=== PATIENT | male | born 1995 | race Asian ===

== ENCOUNTER → 2017-04-30 | Day surgery (SDC) | payer BC ==
[2017-04-23 13:27] VITALS: Ht 170.2 cm; Wt 90.9 kg
[~2017-04-30] VITALS: Ht 170.2 cm; Wt 90.9 kg
[~2017-04-30] MED LIST: CHOL4POW3 PO; DICY10CA12 PO; DICY10CA55 PO; FLUO20CA20 PO; INHALER INH; LIDOCAINE HCL 2% 2 ML VIAL (20MG/ML) ONE; PROM25TA9 PO; PROPOFOL IV EMULSION 10 MG/ML 20 ML VIAL IV ONE; SODIUM CHLORIDE 0.9% 500ML 500 ML IV ONE; VANC5CAP PO
--- NOTE | 2017-04-30 14:29 | Endo History and Physical ---
History & Physical Date of Service: Apr 30, 2017. Chief Complaint: diarrhea Referring Physician: Case History of Present Illness 21 yo male who presents for colonoscopy secondary to diarrhea. 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) Family History IBD Social History Smoking Status: Never Smoker Hx Substance Use: Yes (MARIJUANA USE OCCASIONALLY) Hx Alcohol Use: Yes (RARELY) Allergies Coded Allergies: No Known Allergies (Verified , 04/30/17) Current Medications Reported Home Medications Medications Dose Route/Sig Max Daily Dose Days Date Category Dose Instructions [Inhaler] 2 Puff INH DIRECTED PRN 04/23/17 Reported UNSURE OF NAME OF INHALER Fluoxetine (Fluoxetine Hcl (Pmdd)) 20 Mg Cap 1 Cap PO QAM 04/23/17 Reported Vital Signs Weight (Kilograms): 90.91 Height (Feet): 5 Height (Inches): 7 Date Time Temp Pulse Resp B/P (MAP) Pulse Ox O2 Delivery O2 Flow Rate FiO2 04/30/17 14:05 37.2 68 16 117/69 (85) 97 Room Air Physical Exam General Appearance: WD/WN, no apparent distress Respiratory/Chest: Auscultation: breath sounds normal Cardiovascular: Heart Auscultation: RRR Abdomen: Bowel Sounds: normal Inspection & Palpation: soft, non-distended, no tenderness, guarding & rebound Assessment and Plan Assessment: 21 yo male who presents for colonoscopy secondary to diarrhea. Plan: Proceed with colonoscopy.
--- NOTE | 2017-04-30 15:14 | Discharge Instructions ---
Endoscopy Patient Instructions Date / Procedure(s) Performed Apr 30, 2017. Colonoscopy Allergy Information Coded Allergies: No Known Allergies (Verified , 04/30/17) Discharge Date / Findings Apr 30, 2017. Prominent Ileocecal valve s/p biopsies Random colon biopsies Stool aspirate collected Provider Instructions Activity Restrictions - No exercising or heavy lifting for 24 hours. - Do not drink alcohol the day of the procedure. - Do not drive a car or operate machinery until the day after the procedure. - Do not make any important decisions or sign important papers in 24 hours after the procedure. Following Day: - Return to full activity which may include returning to work/school. Diet Start your diet with liquids and light foods (jello, soup, juice, toast). Then eat your usual diet if not nauseated. Treatment For Common After Affects For mild abdominal pain, bloating, or excessive gas: - Rest - Eat lightly - Lie on right side Follow-Up Information Follow-up with no PCP assigned as scheduled Anesthesia Information What You Should Know You have had a procedure that required some medicine to reduce anxiety and discomfort. This treatment is called moderate sedation. After receiving the treatment, you may be sleepy, but you will be able to breathe on your own. The effects of the treatment may last for several hours. Follow these instructions along with Activity/Diet recommendations noted above: * Do NOT do anything where dizziness or clumsiness would be dangerous. * Rest quietly at home today, then you can be up and about tomorrow. * Have a responsible person stay with you the rest of today. * You may have had an I.V. today. If so, you may take the dressing off later today. Recommendations Call your doctor if: * Trouble breathing * Continuous vomiting for more than 24 hours * Temperature above 101 degrees * Severe abdominal pain or bloating * Pain not relieved by pain medicine ordered * There is increased drainage or redness from any incision * A large amount of rectal bleeding greater than 2-3 tablespoons. (If you had a polyp/s removed or have hemorrhoids, a small amount of blood - from the rectum is to be expected.) * You have any unanswered questions or concerns. IN THE EVENT OF A SERIOUS EMERGENCY, GO TO THE NEAREST EMERGENCY ROOM Your discharge instructions were prepared by provider Tico David. Patient Instructions Signature Page [place] Patient (or Guardian) Signature/Date: I have read and understand the instructions given to me by my caregivers. Caregiver/RN/Doctor Signature/Date: The above-named patient and/or guardian has received patient instructions on this date. + Original Patient Signature Page (only) stays with chart. Please make copy for patient.
--- NOTE | 2017-04-30 15:20 | GI REPORT ---
Procedure Date: 04/30/2017 2:37 PM Procedure: Colonoscopy Indications: Chronic diarrhea Medicines: Monitored Anesthesia Care Complications: No immediate complications. Estimated Blood Loss: Estimated blood loss: none. Procedure: Pre-Anesthesia Assessment: - Prior to the procedure, a History and Physical was performed, and patient medications and allergies were reviewed. The patient's tolerance of previous anesthesia was also reviewed. The risks and benefits of the procedure and the sedation options and risks were discussed with the patient. All questions were answered, and informed consent was obtained. Prior Anticoagulants: The patient has taken no previous anticoagulant or antiplatelet agents. ASA Grade Assessment: II - A patient with mild systemic disease. After reviewing the risks and benefits, the patient was deemed in satisfactory condition to undergo the procedure. After I obtained informed consent, the scope was passed under direct vision. Throughout the procedure, the patient's blood pressure, pulse, and oxygen saturations were monitored continuously. The Scope was introduced through the anus and advanced to the terminal ileum. The colonoscopy was performed without difficulty. The patient tolerated the procedure well. The quality of the bowel preparation was good. The terminal ileum, ileocecal valve, appendiceal orifice, and rectum were photographed. Findings: The perianal and digital rectal examinations were normal. Two biopsies were obtained with cold forceps for histology in a targeted manner at the ileocecal valve. Several random biopsies were obtained with cold forceps for histology in the entire colon. Fluid aspiration for cytology was performed in the entire colon. Impression: - Two biopsies were obtained at the ileocecal valve. - Several random biopsies were obtained in the entire colon. - Fluid aspiration was performed. Recommendation: - Resume previous diet. - Continue present medications. - Repeat colonoscopy for surveillance based on pathology results. - Return to primary care physician as previously scheduled. Tico David DO 04/30/2017 3:20:11 PM This report has been signed electronically. Note Initiated On: 04/30/2017 2:37 PM I attest to the content of the Intraoperative Record and orders documented therein, exceptions below
--- NOTE | 2017-04-30 15:38 | Anesthesiology Progress Note ---
Anesthesia Post Op Note Date & Time Apr 30, 2017 at 15:38 Vital Signs Pain Intensity: 0 Vital Signs Past 12 Hours Date Time Temp Pulse Resp B/P (MAP) Pulse Ox O2 Delivery O2 Flow Rate FiO2 04/30/17 15:27 60 16 137/79 (98) 97 Room Air 04/30/17 15:12 71 16 115/62 (79) 98 Room Air 04/30/17 14:05 37.2 68 16 117/69 (85) 97 Room Air Notes Mental Status: alert / awake / arousable, participated in evaluation Pt Amnestic to Procedure: Yes Nausea / Vomiting: adequately controlled Pain: adequately controlled Airway Patency, RR, SpO2: stable & adequate BP & HR: stable & adequate Hydration State: stable & adequate Anesthetic Complications: no major complications apparent
[2017-04-30 15:42] VITALS: BP 119/84; PULSE 67; O2SAT 97
== END | disposition home or self-care (01) ==
LOC: C.GI 13:34
PROVIDERS: ATTEND Internal Medicine
DX: K52.9 Noninfective gastroenteritis and colitis, unspecified (principal); J45.909 Unspecified asthma, uncomplicated; Z98.890 Other specified postprocedural states; F12.90 Cannabis use, unspecified, uncomplicated; K21.9 Gastro-esophageal reflux disease without esophagitis; E66.9 Obesity, unspecified; Z68.31 Body mass index [BMI] 31.0-31.9, adult

== ENCOUNTER 2017-07-27 09:54 | Emergency (ER) | payer BC, OTHER ==
[~2017-07-27] VITALS: Ht 170.2 cm; Wt 91.1 kg
[~2017-07-27 09:54] MED LIST changes: -CHOL4POW3 PO; -DICY10CA12 PO; -DICY10CA55 PO; -LIDOCAINE HCL 2% 2 ML VIAL (20MG/ML) ONE; -PROM25TA9 PO; -PROPOFOL IV EMULSION 10 MG/ML 20 ML VIAL IV ONE; -SODIUM CHLORIDE 0.9% 500ML 500 ML IV ONE; -VANC5CAP PO
[2017-07-27 10:04] VITALS: TEMP 36.7; Ht 170.2 cm; Wt 91.1 kg
[2017-07-27] MEDS ORDERED: ONDANSETRON INJ 2 MG/ML 2 ML VIAL IV STA (10:15)
[2017-07-27] MEDS ORDERED: SODIUM CHLORIDE 0.9% 1000ML 1,000 ML IV STA (10:15)
[2017-07-27] MEDS ORDERED: KETOROLAC TROMETHAMINE 30 MG/ML VIAL IV STA (10:15)
[2017-07-27 10:52] LABS: BASO % 1.2 %; BASO ABS # 0.08 K/uL (0-0.2); EOS % 1.8 %; EOS ABS # 0.12 K/uL (0-0.5); HEMATOCRIT 45.2 % (42-52); HEMOGLOBIN 15.5 g/dL (14.0-18.0); IG# 0.01 K/uL (0.00-0.02); LYMPH % 30.3 %; LYMPH ABS # 2.01 K/uL (1.2-3.4); MEAN CELL VOLUME 91.9 fL (80-100); MEAN CORPUSCULAR HEMOGLOBIN 31.5 pg (25-34); MEAN CORPUSCULAR HGB CONC 34.3 g/dl (32-36); MONO % 9.6 %; MONO ABS # 0.64 K/uL (0.11-0.59); NEUT % 56.9 %; NEUT ABS # 3.78 K/uL (1.4-6.5); PLATELET COUNT 266 K/uL (130-400); RED CELL DISTRIBUTION WIDTH CV 11.8 % (11.5-14.5); RED CELL DISTRIBUTION WIDTH SD 40.1 fL (36.4-46.3); WHITE BLOOD COUNT 6.64 K/uL (4.8-10.8)
[2017-07-27 11:03] LABS: INR 1.1 (0.9-1.1); PTT PATIENT 29.7 SECONDS (21.0-31.0)
--- NOTE | 2017-07-27 11:03 | DIAGNOSTIC IMAGING REPORT ---
CHEST ONE VIEW PORTABLE CLINICAL HISTORY: 21 years-old Male presenting with ABDOMINAL PAIN/GI, chest pain, vomiting and nausea. TECHNIQUE: Portable upright AP view of the chest was obtained. COMPARISON: None. FINDINGS: Cardiomediastinal silhouette normal. Lungs and pleural spaces clear. Osseous structures normal. Upper abdomen normal. IMPRESSION: 1. No acute cardiopulmonary disease. Electronically signed by: Jorge Luis Lopez M.D. 07/27/2017 11:01 AM Dictated Date/Time: 07/27/2017 11:01 AM
[2017-07-27 11:17] LABS: ALBUMIN 4.1 gm/dl (3.4-5.0); CREATININE 0.89 mg/dl (0.60-1.40); POTASSIUM 4.1 mmol/L (3.5-5.1)
--- NOTE | 2017-07-27 12:22 | EMERGENCY ROOM VISIT NOTE ---
History Report prepared by Scribbreezy: Lester Jordan Under the Supervision of: Dr. Dada Evangelista D.O. First contact with patient: 10:14 Chief Complaint: ABDOMINAL PAIN Stated Complaint: CHEAT PAIN, VOMIT, NAUEA, DIARRHEA, CRAMPS History of Present Illness The patient is a 21 year old male who presents to the Emergency Room with complaints of intermittent diffuse abdominal pain beginning a few weeks ago. He was diagnosed with IBS four years ago, and states that it worsened one year ago. He rates his pain as a 7/10 in severity. The patient also complains of vomiting, nausea, diarrhea, and heart palpitations. He had a colonoscopy and was found to have C-Diff three months ago. He states that his pain is typically worse in the morning, and he states that he is often not able to eat until about 5pm each day. Eating worsens his symptoms. The patient reports losing about 20 pounds in the past month. Source of History: patient Onset: A few weeks ago Position: abdomen (diffuse) Symptom Intensity: 7/10 Modifying Factors (Worsening): eating, other (mornings) Associated Symptoms: + nausea, + vomiting, + diarrhea Note: Additional symptoms: heart palpitations. Review of Systems See HPI for pertinent positives & negatives. A total of 10 systems reviewed and were otherwise negative. Past Medical & Surgical Medical Problems: (1) C. difficile colitis (2) IBS (irritable bowel syndrome) Family History No pertinent family history stated. Social History Smoking Status: Never Smoker Occupation Status: employed Current/Historical Medications Scheduled Fluoxetine Hcl (Pmdd) (Fluoxetine), 20 MG PO QAM Allergies Coded Allergies: No Known Allergies (Verified , 07/27/17) Physical Exam Vital Signs Date Time Temp Pulse Resp B/P (MAP) Pulse Ox O2 Delivery O2 Flow Rate FiO2 07/27/17 11:30 69 16 122/68 98 Room Air 07/27/17 10:04 36.7 88 20 126/86 97 Room Air Physical Exam CONSTITUTIONAL/VITAL SIGNS: Reviewed / noted above. GENERAL: Non-toxic in appearance. INTEGUMENTARY: Warm, dry, and [place]. HEAD: Normocephalic. EYES: without scleral icterus or trauma. ENT/OROPHARYNX: clear and moist. LYMPHADENOPATHY/NECK: Is supple without lymphadenopathy or meningismus. RESPIRATORY: Lungs clear and equal. CARDIOVASCULAR: Regular rate and rhythm. GI/ABDOMEN: Soft. Mild diffuse abdominal tenderness. No organomegaly or pulsatile mass. No rebound or guarding. Normal bowel sounds. EXTREMITIES: Warm and well perfused. BACK: No CVA tenderness. NEUROLOGICAL: Intact without focal deficits. PSYCHIATRIC: normal affect. MUSCULOSKELETAL: Normally developed with good muscle tone. Medical Decision & Procedures ER Provider Diagnostic Interpretation: Radiology results as stated below per my review and radiologist interpretation: CHEST ONE VIEW PORTABLE FINDINGS: Cardiomediastinal silhouette normal. Lungs and pleural spaces clear. Osseous structures normal. Upper abdomen normal. IMPRESSION: 1. No acute cardiopulmonary disease. Electronically signed by: Jorge Luis Lopez M.D. 07/27/2017 11:01 AM Laboratory Results 07/27/17 10:35 Red Blood Count 4.92, Mean Corpuscular Volume 91.9, Mean Corpuscular Hemoglobin 31.5, Mean Corpuscular Hemoglobin Concent 34.3, Mean Platelet Volume 9.0, Neutrophils (%) (Auto) 56.9, Lymphocytes (%) (Auto) 30.3, Monocytes (%) (Auto) 9.6, Eosinophils (%) (Auto) 1.8, Basophils (%) (Auto) 1.2, Neutrophils # (Auto) 3.78, Lymphocytes # (Auto) 2.01, Monocytes # (Auto) 0.64, Eosinophils # (Auto) 0.12, Basophils # (Auto) 0.08 07/27/17 10:35 Test 07/27/17 10:35 White Blood Count 6.64 K/uL (4.8-10.8) Red Blood Count 4.92 M/uL (4.7-6.1) Hemoglobin 15.5 g/dL (14.0-18.0) Hematocrit 45.2 % (42-52) Mean Corpuscular Volume 91.9 fL (80-100) Mean Corpuscular Hemoglobin 31.5 pg (25-34) Mean Corpuscular Hemoglobin Concent 34.3 g/dl (32-36) Platelet Count 266 K/uL (130-400) Mean Platelet Volume 9.0 fL (7.4-10.4) Neutrophils (%) (Auto) 56.9 % Lymphocytes (%) (Auto) 30.3 % Monocytes (%) (Auto) 9.6 % Eosinophils (%) (Auto) 1.8 % Basophils (%) (Auto) 1.2 % Neutrophils # (Auto) 3.78 K/uL (1.4-6.5) Lymphocytes # (Auto) 2.01 K/uL (1.2-3.4) Monocytes # (Auto) 0.64 K/uL (0.11-0.59) Eosinophils # (Auto) 0.12 K/uL (0-0.5) Basophils # (Auto) 0.08 K/uL (0-0.2) RDW Standard Deviation 40.1 fL (36.4-46.3) RDW Coefficient of Variation 11.8 % (11.5-14.5) Immature Granulocyte % (Auto) 0.2 % Immature Granulocyte # (Auto) 0.01 K/uL (0.00-0.02) Prothrombin Time 11.2 SECONDS (9.0-12.0) Prothromb Time International Ratio 1.1 (0.9-1.1) Activated Partial Thromboplast Time 29.7 SECONDS (21.0-31.0) Partial Thromboplastin Ratio 1.1 Anion Gap 6.0 mmol/L (3-11) Est Creatinine Clear Calc Drug Dose 141.3 ml/min Estimated GFR () 141.7 Estimated GFR (Non- 122.2 BUN/Creatinine Ratio 14.6 (10-20) Calcium Level 9.0 mg/dl (8.5-10.1) Total Bilirubin 0.7 mg/dl (0.2-1) Direct Bilirubin 0.1 mg/dl (0-0.2) Aspartate Amino Transf (AST/SGOT) 14 U/L (15-37) Alanine Aminotransferase (ALT/SGPT) 27 U/L (12-78) Alkaline Phosphatase 82 U/L (45-117) Total Protein 8.0 gm/dl (6.4-8.2) Albumin 4.1 gm/dl (3.4-5.0) Lipase 85 U/L (73-393) Date/Time Source Procedure Growth Status 07/27/17 11:10 Stool C.difficile Toxin B Gene (PCR) - Final Positive for C. difficile toxin B gene Complete Laboratory results as stated above per my review. Medications Administered Medications (Trade) Dose Ordered Sig/Gale Route Start Time Stop Time Status Last Admin Dose Admin Sodium Chloride 1,000 ml @ 999 mls/hr Q1H1M STAT IV 07/27/17 10:15 07/27/17 11:15 DC 07/27/17 10:15 999 MLS/HR Ondansetron HCl (Zofran Inj) 4 mg NOW STAT IV 07/27/17 10:15 07/27/17 10:17 DC 07/27/17 10:42 4 MG ECG Per My Interpretation Indication: abdominal pain Rate (beats per minute): 70 Rhythm: normal sinus Findings: no ectopy, other (No ST elevations. No ST depressions. ) ED Course 1017: Previous medical records were reviewed. The patient was evaluated in room C5. A complete history and physical examination was performed. Ordered Toradol Inj 30 mg IV, Zofran Inj 4 mg IV, Sodium Chloride 1000 ml @ 999 mls/hr IV. 1208: On reevaluation, the patient is resting comfortably. I discussed the results and findings with the patient. He verbalized agreement of the treatment plan. The patient was discharged home. Medical Decision Differential considered: pancreatitis, hepatitis, or acute cholecystitis, AAA, UTI, pyelonephritis, kidney stones, appendicitis, diverticulitis, shingles, bowel obstruction mesenteric ischemia, intussusception,hernia, testicular torsion. This is a 21-year-old male who presents to the ED with a chief complaint of abdominal discomfort. The patient reports abdominal cramps as well as some nausea and vomiting. He was diagnosed with IBS for years ago. He had a colonoscopy in April was diagnosed with C. difficile. The patient has been on Prilosec recently without any changes in his symptoms. He saw Dr. David last week. The patient also reported some palpitations this morning. The patient came in for evaluation for this. His vital signs are normal. His physical exam was unremarkable. He had some mild diffuse tenderness. CBC is normal, complete metabolic panel was normal and lipase was negative. The patient does report diarrhea with p.o. intake. He states that he was supposed to have a repeat C. difficile test and this was positive today. The patient was treated with IV fluids, IV Zofran and IV Toradol. He remained stable. He is felt to be stable for discharge and follow-up with GI. Discharged with a 10 day course of vancomycin. Medication Reconcilliation Current Medication List: was personally reviewed by me Blood Pressure Screening Patient's blood pressure: Normal blood pressure Blood pressure disposition: Did not require urgent referral Impression Primary Impression: Abdominal pain, diffuse Scribe Attestation The scribe's documentation has been prepared under my direction and personally reviewed by me in its entirety. I confirm that the note above accurately reflects all work, treatment, procedures, and medical decision making performed by me. Departure Information Prescriptions Vancomycin Hcl (Vancomycin) 125 Mg Cap 1 TAB PO QID for 10 Days, #40 TAB Prov: Dada Evangelista D.O. 07/27/17 Referrals No Doctor, Assigned (PCP) Patient Instructions My [facility] Additional Instructions Follow-up with your GI specialist for further evaluation if her symptoms persist. Vancomycin 4 times daily as prescribed. Follow-up with your doctor for further care and evaluation in 1-2 days. Return to the emergency department for worsening or new symptoms or any concerns. You have been examined and treated today on an emergency basis only. This is not a substitute for, or an effort to provide, complete comprehensive medical care. It is impossible to recognize and treat all injuries or illnesses in a single emergency department visit. It is therefore important that you follow up closely with your doctor. Call as soon as possible for an appointment. Work Instructions Return To Work: 1 week
[2017-07-27] MEDS ORDERED: VANC5CAP PO (12:33)
[2017-07-27 12:51] VITALS: BP 116/81; PULSE 72; O2SAT 98
== END 2017-07-27 12:53 | disposition home or self-care (01) ==
LOC: C.EDB 09:55 → C.EDC 12:53
DX: R10.84 Generalized abdominal pain (principal); K58.9 Irritable bowel syndrome, unspecified; R11.2 Nausea with vomiting, unspecified; R19.7 Diarrhea, unspecified; R00.2 Palpitations; A04.72 Enterocolitis due to Clostridium difficile, not specified as recurrent; R63.4 Abnormal weight loss

== ENCOUNTER 2017-08-12 10:27 | Emergency (ER) | payer OTHER ==
[~2017-08-12] VITALS: Ht 170.2 cm; Wt 91.3 kg
[~2017-08-12 10:27] MED LIST changes: -INHALER INH; +VANC5CAP PO
[2017-08-12 10:29] VITALS: TEMP 36.8; Ht 170.2 cm; Wt 91.3 kg
[2017-08-12] MEDS ORDERED: SODIUM CHLORIDE 0.9% 1000ML 1,000 ML IV STA (11:12)
[2017-08-12] MEDS ORDERED: KETOROLAC TROMETHAMINE 30 MG/ML VIAL IV STA (11:12)
[2017-08-12] MEDS ORDERED: HYDROmorphone INJ 1 MG/ML SYR IV STA (11:12)
[2017-08-12] MEDS ORDERED: METOCLOPRAMIDE HCL INJ 5 MG/ML 2 ML VIAL IV. STA (11:12)
[2017-08-12] MEDS ORDERED: VANC5CAP PO ×2 (11:22→14:09)
[2017-08-12] MEDS ORDERED: DICY10CA12 PO (11:22)
[2017-08-12] MEDS ORDERED: PROM25TA9 PO (11:22)
[2017-08-12] MEDS ORDERED: OPTIRAY 320 IV PRN (11:30)
--- NOTE | 2017-08-12 11:38 | EMERGENCY ROOM VISIT NOTE ---
History Report prepared by Elio: Tammy Araiza Under the Supervision of: Dr. Dada Haro M.D. First contact with patient: 10:50 Chief Complaint: ABDOMINAL PAIN Stated Complaint: VERY PAINFUL STOMACH, INTESTINES Nursing Triage Summary: pt reports seen here 3 weeks ago for c diff and has been ongoing History of Present Illness The patient is a 21 year old male who presents to the Emergency Room with complaints of constant abdominal pressure beginning 5 days ago. He reports he has been waking up the past five days with 9/10 abdominal pain. The patient reports a constant urge to go to the bathroom. The patient states "my stool has been air like rice krispies and not like normal diarrhea". The patient was seen three weeks ago in the ED and was put on a six week course of vancomycin for C. Diff. The patient saw for a follow up after being seen in the ED. Dr. Morillo was given antinausea medications as a well as a a stomach relaxer. The patient denies taking any Tylenol or ibuprofen for his pain. He notes increased gas. The patient reports he has been calling Dr. Morillo's office for the past several days and has been unable to get a hold of anyone. The patient reports he has lost 20 pounds since April. He denies losing any more weight since he was seen in the ED 3 weeks ago. The patient has a history of C.diff and IBS. Source of History: patient Onset: 5 days ago Position: abdomen Quality: pressure Timing: constant Associated Symptoms: + nausea, + abdominal pain, + diarrhea Review of Systems See HPI for pertinent positives & negatives. A total of 10 systems reviewed and were otherwise negative. Past Medical & Surgical Medical Problems: (1) C. difficile colitis (2) IBS (irritable bowel syndrome) Family History Cancer FH: hypertension Heart disease Social History Smoking Status: Never Smoker Alcohol Use: occasionally Drug Use: marijuana Housing Status: lives with family Occupation Status: employed Current/Historical Medications Scheduled Cholestyramine (Cholestyramine), 4 GM PO BID Dicyclomine Hcl (Dicyclomine Hcl), 10 CAP PO TID Dicyclomine Hcl (Bentyl), 20 MG PO TID Fluoxetine Hcl (Pmdd) (Fluoxetine), 20 MG PO QAM Vancomycin Hcl (Vancomycin), 125 MG PO BID Vancomycin Hcl (Vancomycin), 1 CAP PO DAILY Scheduled PRN Promethazine Hcl (Phenergan), 25 MG PO Q6H PRN for Nausea Allergies Coded Allergies: No Known Allergies (Verified , 08/12/17) Physical Exam Vital Signs Date Time Temp Pulse Resp B/P (MAP) Pulse Ox O2 Delivery O2 Flow Rate FiO2 08/12/17 14:28 70 18 126/77 98 08/12/17 13:34 67 16 136/81 99 Room Air 08/12/17 12:06 65 16 133/80 99 Room Air 08/12/17 10:29 36.8 88 18 133/90 98 Room Air Physical Exam GENERAL: Awake, alert, well-appearing, in no acute distress HENT: Normocephalic, atraumatic. Oropharynx unremarkable. EYES: Normal conjunctiva. Sclera non-icteric. NECK: Supple. No nuchal rigidity. FROM. No JVD. RESPIRATORY: Clear to auscultation. CARDIAC: Regular rate, normal rhythm. Extremities warm and well perfused. Pulses equal. ABDOMEN: Soft, non-distended. No tenderness to palpation. No rebound or guarding. No masses. RECTAL: Deferred. MUSCULOSKELETAL: Chest examination reveals no tenderness. The back is symmetrical on inspection without obvious abnormality. There is no CVA tenderness to palpation. No joint edema. LOWER EXTREMITIES: Calves are equal size bilaterally and non-tender. No edema. No discoloration. NEURO: Normal sensorium. No sensory or motor deficits noted. SKIN: No rash or jaundice noted. Medical Decision & Procedures ER Provider Diagnostic Interpretation: Radiology results as stated below per my review and radiologist interpretation: CT OF THE ABDOMEN AND PELVIS WITH CONTRAST FINDINGS: The liver, spleen, adrenal glands, kidneys and pancreas are normal. There is no hydronephrosis. There is no peripancreatic or pericholecystic infiltration. No biliary or pancreatic ductal dilatation is present. No pneumatosis, free air or portal venous gas is present. The appendix is normal. No ascites or lymphadenopathy is noted. There is no hydronephrosis. Visualized skeletal structures are unremarkable. IMPRESSION: No acute process within the abdomen or pelvis. Normal appendix. Electronically signed by: Ajit Medina M.D. Laboratory Results 08/12/17 11:30 Red Blood Count 4.73, Mean Corpuscular Volume 92.2, Mean Corpuscular Hemoglobin 31.5, Mean Corpuscular Hemoglobin Concent 34.2, Mean Platelet Volume 9.0, Neutrophils (%) (Auto) 61.4, Lymphocytes (%) (Auto) 25.6, Monocytes (%) (Auto) 9.8, Eosinophils (%) (Auto) 2.4, Basophils (%) (Auto) 0.6, Neutrophils # (Auto) 4.08, Lymphocytes # (Auto) 1.70, Monocytes # (Auto) 0.65, Eosinophils # (Auto) 0.16, Basophils # (Auto) 0.04 08/12/17 11:30 Test 08/12/17 11:30 White Blood Count 6.64 K/uL (4.8-10.8) Red Blood Count 4.73 M/uL (4.7-6.1) Hemoglobin 14.9 g/dL (14.0-18.0) Hematocrit 43.6 % (42-52) Mean Corpuscular Volume 92.2 fL (80-100) Mean Corpuscular Hemoglobin 31.5 pg (25-34) Mean Corpuscular Hemoglobin Concent 34.2 g/dl (32-36) Platelet Count 271 K/uL (130-400) Mean Platelet Volume 9.0 fL (7.4-10.4) Neutrophils (%) (Auto) 61.4 % Lymphocytes (%) (Auto) 25.6 % Monocytes (%) (Auto) 9.8 % Eosinophils (%) (Auto) 2.4 % Basophils (%) (Auto) 0.6 % Neutrophils # (Auto) 4.08 K/uL (1.4-6.5) Lymphocytes # (Auto) 1.70 K/uL (1.2-3.4) Monocytes # (Auto) 0.65 K/uL (0.11-0.59) Eosinophils # (Auto) 0.16 K/uL (0-0.5) Basophils # (Auto) 0.04 K/uL (0-0.2) RDW Standard Deviation 40.5 fL (36.4-46.3) RDW Coefficient of Variation 11.9 % (11.5-14.5) Immature Granulocyte % (Auto) 0.2 % Immature Granulocyte # (Auto) 0.01 K/uL (0.00-0.02) Erythrocyte Sedimentation Rate 4 mm/hr (0-14) Anion Gap 5.0 mmol/L (3-11) Est Creatinine Clear Calc Drug Dose 148.1 ml/min Estimated GFR () 144.4 Estimated GFR (Non- 124.6 BUN/Creatinine Ratio 17.0 (10-20) Calcium Level 8.7 mg/dl (8.5-10.1) Total Bilirubin 0.3 mg/dl (0.2-1) Direct Bilirubin < 0.1 mg/dl (0-0.2) Aspartate Amino Transf (AST/SGOT) 16 U/L (15-37) Alanine Aminotransferase (ALT/SGPT) 26 U/L (12-78) Alkaline Phosphatase 81 U/L (45-117) C-Reactive Protein < 0.29 mg/dl (0-0.29) Total Protein 7.6 gm/dl (6.4-8.2) Albumin 4.0 gm/dl (3.4-5.0) Lipase 125 U/L (73-393) Labs reviewed by ED physician. Medications Administered Medications (Trade) Dose Ordered Sig/Gale Route Start Time Stop Time Status Last Admin Dose Admin Sodium Chloride 1,000 ml @ 999 mls/hr Q1H1M STAT IV 08/12/17 11:12 08/12/17 12:12 DC 08/12/17 11:37 999 MLS/HR Hydromorphone HCl (Dilaudid Inj) 1 mg NOW STAT IV 08/12/17 11:12 08/12/17 11:15 DC 08/12/17 11:38 1 MG Metoclopramide HCl (Reglan Inj) 10 mg NOW STAT IV. 08/12/17 11:12 08/12/17 11:15 DC 08/12/17 11:38 10 MG Ketorolac Tromethamine (Toradol Inj) 30 mg NOW STAT IV 08/12/17 11:12 08/12/17 11:15 DC 08/12/17 11:38 30 MG Diphenhydramine HCl (Benadryl Inj) 50 mg NOW STAT IV 08/12/17 11:59 08/12/17 12:00 DC 08/12/17 12:05 50 MG Cholestyramine Resin (Questran Powder Light) 4 gm NOW STAT PO 08/12/17 14:06 08/12/17 14:07 DC 08/12/17 14:23 4 GM ED Course 1101: Past medical records reviewed. The patient was evaluated in room A10. A complete history and physical examination was performed. 1112: Ordered Toradol Inj 30 mg IV, Reglan Inj 10 mg IV, Dilaudid Inj 1 mg IV, Sodium Chloride 1000 ml @ 999 mls/hr. 1145: Conversation with Dr. Ambar MCNALLY. She said to increase the vancomycin taper and bentyl and put him on cholestyramine if his CT is normal. 1159: Ordered Benadryl Inj 50 mg IV. 1356: I updated the patient on his test results. 1406: Ordered Cholestyramine Resin 4 gm PO. 1413: Upon reexamination the patient is resting comfortably. I discussed results and treatment plan with the patient. He verbalizes agreement and understanding. The patient is ready for discharge. Medical Decision Differential diagnosis: Etiologies such as appendicitis, diverticulitis, PUD, biliary pathology, UTI, pancreatitis, obstruction, mesenteric ischemia, aortic pathology, infections, inflammatory bowel disease, renal colic, as well as others were entertained. This is a 21-year-old male who presents emergency department complaining of diffuse abdominal pain. Serial abdominal examinations were performed on the patient in the emergency department and at no time to the patient exhibited surgical abdomen or even abdominal tenderness. Due to the patient's complaint the patient was sent for CAT scan of the abdomen and pelvis in addition CBC renal profile liver profile lipase as well as an ESR and CRP were all obtained. These were all felt to be within normal limits. The patient was seen by the relative Rui who recommended changes in his medication including increasing the patient's vancomycin taper, placing the patient on cholestyramine, and increasing the patient's Bentyl from 10 mg 3 times a day to 20 mg 3 times a day. I also recommended to the patient he take Tylenol for his pain. Patient and mother were in agreement with the treatment plan. Medication Reconcilliation Current Medication List: was personally reviewed by me Blood Pressure Screening Patient's blood pressure: Normal blood pressure Impression Primary Impression: Abdominal pain Scribe Attestation The scribe's documentation has been prepared under my direction and personally reviewed by me in its entirety. I confirm that the note above accurately reflects all work, treatment, procedures, and medical decision making performed by me. Departure Information Dispostion Home / Self-Care Prescriptions Vancomycin Hcl (Vancomycin) 125 Mg Cap 1 CAP PO DAILY for 7 Days, #7 CAP Prov: Dada Haro MD 08/12/17 Dicyclomine Hcl (BENTYL) 10 Mg Cap 20 MG PO TID for 28 Days, #168 CAP Prov: Dada Haro MD 08/12/17 Cholestyramine (CHOLESTYRAMINE) 4 Gm/Dose Pow 4 GM PO BID for 30 Days, #60 DOSE Prov: Dada Haro MD 08/12/17 Referrals Diego Morillo MD (PCP) Forms HOME CARE DOCUMENTATION FORM, IMPORTANT VISIT INFORMATION Patient Instructions My [facility] Additional Instructions Increase Dicyclomine to 20 mg TID Take Tylenol 1000 mg every 6 hours Increase Vancomycin to 125 mg THREE times a day (Then continue on with taper i.e.- two times a week next week, etc.) Take cholestyramine twice a day Recommend clear liquid diet next 48 hours You have been examined and treated today on an emergency basis only. This is not a substitute for, or an effort to provide, complete comprehensive medical care. It is impossible to recognize and treat all injuries or illnesses in a single emergency department visit. It is therefore important that you follow up closely with your PCP. Call as soon as possible for an appointment. Thank you for your time and consideration. I look forward to speaking with you again soon. Please don't hesitate to call us if you have any questions. Problem Qualifiers Primary Impression: Abdominal pain Abdominal location: generalized Qualified Codes: R10.84 - Generalized abdominal pain
[2017-08-12 11:41] LABS: BASO % 0.6 %; BASO ABS # 0.04 K/uL (0-0.2); EOS % 2.4 %; EOS ABS # 0.16 K/uL (0-0.5); HEMATOCRIT 43.6 % (42-52); HEMOGLOBIN 14.9 g/dL (14.0-18.0); IG# 0.01 K/uL (0.00-0.02); LYMPH % 25.6 %; MEAN CELL VOLUME 92.2 fL (80-100); MEAN CORPUSCULAR HEMOGLOBIN 31.5 pg (25-34); MEAN CORPUSCULAR HGB CONC 34.2 g/dl (32-36); MONO % 9.8 %; MONO ABS # 0.65 K/uL (0.11-0.59); NEUT % 61.4 %; NEUT ABS # 4.08 K/uL (1.4-6.5); PLATELET COUNT 271 K/uL (130-400); RED CELL DISTRIBUTION WIDTH CV 11.9 % (11.5-14.5); RED CELL DISTRIBUTION WIDTH SD 40.5 fL (36.4-46.3); WHITE BLOOD COUNT 6.64 K/uL (4.8-10.8)
[2017-08-12 11:57] LABS: ALT/SGPT 26 U/L (12-78); BLOOD UREA NITROGEN 15 mg/dl (7-18); CALCIUM 8.7 mg/dl (8.5-10.1); CARBON DIOXIDE 25 mmol/L (21-32); CREATININE 0.85 mg/dl (0.60-1.40); GLUCOSE 96 mg/dl (70-99); LIPASE 125 U/L (73-393); POTASSIUM 4.1 mmol/L (3.5-5.1); SODIUM 138 mmol/L (136-145)
[2017-08-12] MEDS ORDERED: DiphenhydrAMINE HCL 50 MG/ML VIAL IV STA (11:59)
[2017-08-12 12:00] LABS: ALKALINE PHOSPHATASE 81 U/L (45-117); AST/SGOT 16 U/L (15-37); TOTAL PROTEIN 7.6 gm/dl (6.4-8.2)
--- NOTE | 2017-08-12 12:39 | Progress Note ---
Progress Note Date of Service Aug 12, 2017. (Isabel Fabian,Sophia.Judy.N.P.) Progress Note Mr. Pierce a 21 yr old male with a hx of chronic abdominal pain, c-diff diarrhea, anxiety presented to the ED for increased abdominal pain, mostly RLQ, but bilat lower abdomen, present when he awakens and lasts all day, worse after each time he eats. Nausea but no vomiting with the pain. 5-7 loose, "airy" BMs/day. No improvement on dicyclomine 5mg TID. Currently on a Vanco taper - no improvement. Mom in the room, stating she felt it was important to make sure there wasn't something else going on. Awaiting CT scan. Exam: Gen: Awake, alert, oriented x 3. Tells me he feels anxious, sweating. Neuro: grossly normal. Chest: Lungs CTA, A&P Abd: soft, moderate/diffuse lower abdomen tenderness, no masses Ext: no edema Labs: no abnormalities on CBC or CMP. Sed rate pending. Assessment: C-diff diarrhea. Plan: Will review CT results when available. If no significant findings on CT, then recommend increasing Bentyl dose, stepping up the Vanco taper and adding cholestyramine. F/u in OP GI clinic. (Isabel Fabian,C.R.N.P.)
--- NOTE | 2017-08-12 13:55 | DIAGNOSTIC IMAGING REPORT ---
CT OF THE ABDOMEN AND PELVIS WITH CONTRAST CLINICAL HISTORY: Diffuse abdominal pain. COMPARISON STUDY: None. TECHNIQUE: Following IV administration of 93 mL of [id number]-320, axial images of the abdomen and pelvis were obtained from the lung bases to the proximal femurs. Images were reviewed in the axial, sagittal, and coronal planes. IV contrast was administered without complication. A dose lowering technique was utilized adhering to the principles of ALARA. Oral contrast was administered. CT DOSE: 951.28 mGycm FINDINGS: The liver, spleen, adrenal glands, kidneys and pancreas are normal. There is no hydronephrosis. There is no peripancreatic or pericholecystic infiltration. No biliary or pancreatic ductal dilatation is present. No pneumatosis, free air or portal venous gas is present. The appendix is normal. No ascites or lymphadenopathy is noted. There is no hydronephrosis. Visualized skeletal structures are unremarkable. IMPRESSION: No acute process within the abdomen or pelvis. Normal appendix. Electronically signed by: Ajit Medina M.D. 08/12/2017 1:54 PM Dictated Date/Time: 08/12/2017 1:50 PM
[2017-08-12] MEDS ORDERED: CHOLESTYRAMINE LIGHT 4 GM PKT PO STA (14:06)
[2017-08-12] MEDS ORDERED: DICY10CA55 PO (14:09)
[2017-08-12] MEDS ORDERED: CHOL4POW3 PO (14:09)
[2017-08-12 14:28] VITALS: BP 126/77; PULSE 70; O2SAT 98
== END 2017-08-12 14:29 | disposition home or self-care (01) ==
LOC: C.EDB 10:29 → C.EDC 14:29
DX: R10.84 Generalized abdominal pain (principal); A04.72 Enterocolitis due to Clostridium difficile, not specified as recurrent; R63.4 Abnormal weight loss; K58.9 Irritable bowel syndrome, unspecified; F12.90 Cannabis use, unspecified, uncomplicated; Z82.49 Family history of ischemic heart disease and other diseases of the circulatory system